=== PATIENT | female | born 1945 | race African-American/Black ===

== ENCOUNTER 2018-10-24 12:06 | Inpatient (IN) | payer MEDICARE, OTHER ==
[2018-10-24 14:16] LABS: ADD MAN DIFF? NO
[2018-10-24 14:20] LABS: BASOPHILS % 0.2 % (0.0-2.0); EOSINOPHILS # 0.1 10^3/ul (0.0-0.5); EOSINOPHILS % 1.1 % (0.0-7.0); HEMATOCRIT 32.5 % (37.0-47.0); LYMPHOCYTES # 2.1 10^3/ul (0.8-2.9); LYMPHOCYTES % 25.6 % (15.0-51.0); MEAN CORPUSCULAR HEMOGLOBIN 25.3 pg (29.0-33.0); MEAN CORPUSCULAR HGB CONC 33.8 g/dl (32.0-37.0); MEAN CORPUSCULAR VOLUME 74.9 fl (82.0-101.0); MEAN PLATELET VOLUME 10.8 fl (7.4-10.4); MONOCYTE # 0.7 10^3/ul (0.3-0.9); MONOCYTES % 8.5 % (0.0-11.0); NEUTROPHIL # 5.2 10^3/ul (1.6-7.5); NEUTROPHILS % 64.2 % (39.0-77.0); PLATELET COUNT 308 10^3/UL (140-415); RED BLOOD COUNT 4.34 10^6/ul (4.20-5.40); RED CELL DISTRIBUTION WIDTH 15.2 % (11.5-14.5)
[2018-10-24 14:20] LABS: WHITE BLOOD COUNT 8.2 10^3/ul (4.8-10.8)
[2018-10-24 14:39] LABS: ALANINE AMINOTRANSFERASE 23 IU/L (13-69); ALBUMIN 3.7 g/dl (3.3-4.9); ALBUMIN/GLOBULIN RATIO 1.23; ALKALINE PHOSPHATASE 99 IU/L (42-121); ANION GAP 12 (5-13); ASPARTATE AMINO TRANSFERASE 21 IU/L (15-46); BILIRUBIN,INDIRECT 0.3 mg/dl (0-1.1); BILIRUBIN,TOTAL 0.3 mg/dl (0.2-1.3); BLOOD UREA NITROGEN 18 mg/dl (7-20); CALCIUM 8.9 mg/dl (8.4-10.2); CARBON DIOXIDE 28 mmol/L (21-31); CHLORIDE 103 mmol/L (97-110); CREATININE 1.44 mg/dl (0.44-1.00); GLUCOSE 103 mg/dl (70-220); POTASSIUM 3.8 mmol/L (3.5-5.1); SODIUM 143 mmol/L (135-144); TOTAL PROTEIN 6.7 g/dl (6.1-8.1)
[2018-10-24 14:50] LABS: B-TYPE NATRIURETIC PEPTIDE 6000 PG/ML (0-125); TROPONIN-I 0.028 ng/ml (0.000-0.120)
[2018-10-24 14:52] LABS: INR 1.13; PROTIME 14.6 Sec (11.9-14.9); PT RATIO 1.1
[2018-10-24] MEDS: FUROSEMIDE 40 MG INJ IV (15:40)
[2018-10-24 17:34] LABS: TROPONIN-I 0.033 ng/ml (0.000-0.120)
[2018-10-24] MEDS: SPIRONOLACTONE 25 MG TAB PO (22:54)
[2018-10-24] MEDS: POTASSIUM CHLORIDE (SR) 20 MEQ TAB PO (22:54)
[2018-10-25] MEDS: FUROSEMIDE 40 MG INJ IV ×2 (05:54→17:29)
[2018-10-25 06:10] LABS: ADD MAN DIFF? NO
[2018-10-25 06:28] LABS: BASOPHILS % 0.3 % (0.0-2.0); EOSINOPHILS # 0.1 10^3/ul (0.0-0.5); EOSINOPHILS % 0.9 % (0.0-7.0); HEMATOCRIT 31.2 % (37.0-47.0); HEMOGLOBIN 10.3 g/dl (12.0-16.0); LYMPHOCYTES # 1.5 10^3/ul (0.8-2.9); LYMPHOCYTES % 22.7 % (15.0-51.0); MEAN CORPUSCULAR HEMOGLOBIN 25.1 pg (29.0-33.0); MEAN CORPUSCULAR VOLUME 75.9 fl (82.0-101.0); MEAN PLATELET VOLUME 11.2 fl (7.4-10.4); MONOCYTE # 0.5 10^3/ul (0.3-0.9); MONOCYTES % 8.5 % (0.0-11.0); NEUTROPHIL # 4.3 10^3/ul (1.6-7.5); NEUTROPHILS % 67.3 % (39.0-77.0); PLATELET COUNT 289 10^3/UL (140-415); RED BLOOD COUNT 4.11 10^6/ul (4.20-5.40)
[2018-10-25 06:28] LABS: WHITE BLOOD COUNT 6.4 10^3/ul (4.8-10.8)
[2018-10-25 06:39] LABS: DIGOXIN < 0.4 ng/ml (1.0-2.0)
[2018-10-25 06:49] LABS: TROPONIN-I 0.034 ng/ml (0.000-0.120)
[2018-10-25 06:53] LABS: FREE T4 (FREE THYROXINE) 1.39 ng/dl (0.78-2.44)
[2018-10-25 06:57] LABS: ALANINE AMINOTRANSFERASE 22 IU/L (13-69); ALBUMIN 3.5 g/dl (3.3-4.9); ALKALINE PHOSPHATASE 96 IU/L (42-121); ANION GAP 12 (5-13); ASPARTATE AMINO TRANSFERASE 23 IU/L (15-46); BILIRUBIN,INDIRECT 0.3 mg/dl (0-1.1); BILIRUBIN,TOTAL 0.3 mg/dl (0.2-1.3); BLOOD UREA NITROGEN 22 mg/dl (7-20); CALCIUM 8.9 mg/dl (8.4-10.2); CARBON DIOXIDE 25 mmol/L (21-31); CHLORIDE 105 mmol/L (97-110); CHOL/HDL RATIO 5.1 RATIO; CHOLESTEROL 113 mg/dl (100-200); CREATININE 1.47 mg/dl (0.44-1.00); GLUCOSE 116 mg/dl (70-220); HDL CHOLESTEROL 22 mg/dl (33-92); LDL CHOLESTEROL,CALCULATED 71 mg/dl; MAGNESIUM 1.8 mg/dl (1.7-2.5); POTASSIUM 3.9 mmol/L (3.5-5.1); SODIUM 142 mmol/L (135-144); TOTAL PROTEIN 6.4 g/dl (6.1-8.1); TRIGLYCERIDES 99 mg/dl (0-149)
[2018-10-25 07:45] LABS: B-TYPE NATRIURETIC PEPTIDE 7880 PG/ML (0-125)
[2018-10-25] MEDS: ISOSORBIDE MONONITRATE 20 MG TAB PO ×3 (08:53→20:33)
[2018-10-25] MEDS: ALLOPURINOL 100 MG TAB PO (08:54)
[2018-10-25] MEDS: POTASSIUM CHLORIDE (SR) 10 MEQ TAB PO (08:54)
[2018-10-25] MEDS: SPIRONOLACTONE 25 MG TAB PO (08:54)
[2018-10-25] MEDS ORDERED: FUROSEMIDE 40 MG INJ IV (09:00)
[2018-10-25] MEDS: ACETAMINOPHEN 325 MG TAB PO (18:15)
[2018-10-25] MEDS: GUAIFENESIN 20 MG/ML 5ML CUP PO ×2 (18:16→20:33)
[2018-10-25] MEDS: FERROUS SULFATE (EC) 325 MG TAB PO (23:11)
[2018-10-26] MEDS: GUAIFENESIN 20 MG/ML 5ML CUP PO ×2 (00:10→17:12)
[2018-10-26] MEDS: FUROSEMIDE 40 MG INJ IV (05:55)
[2018-10-26 06:08] LABS: B-TYPE NATRIURETIC PEPTIDE 8560 PG/ML (0-125)
[2018-10-26 06:19] LABS: ALANINE AMINOTRANSFERASE 24 IU/L (13-69); ALBUMIN 3.2 g/dl (3.3-4.9); ALBUMIN/GLOBULIN RATIO 1.14; ALKALINE PHOSPHATASE 97 IU/L (42-121); ANION GAP 10 (5-13); ASPARTATE AMINO TRANSFERASE 19 IU/L (15-46); BILIRUBIN,INDIRECT 0.3 mg/dl (0-1.1); BILIRUBIN,TOTAL 0.3 mg/dl (0.2-1.3); BLOOD UREA NITROGEN 23 mg/dl (7-20); CALCIUM 8.8 mg/dl (8.4-10.2); CARBON DIOXIDE 25 mmol/L (21-31); CHLORIDE 107 mmol/L (97-110); CREATININE 1.45 mg/dl (0.44-1.00); GLUCOSE 101 mg/dl (70-220); MAGNESIUM 1.8 mg/dl (1.7-2.5); POTASSIUM 3.4 mmol/L (3.5-5.1); SODIUM 142 mmol/L (135-144)
[2018-10-26] MEDS: ISOSORBIDE MONONITRATE 20 MG TAB PO ×3 (08:04→20:40)
[2018-10-26] MEDS: POTASSIUM CHLORIDE (SR) 10 MEQ TAB PO (08:05)
[2018-10-26] MEDS: ALLOPURINOL 100 MG TAB PO (08:05)
[2018-10-26] MEDS: SPIRONOLACTONE 25 MG TAB PO (08:05)
[2018-10-26] MEDS: FERROUS SULFATE (EC) 325 MG TAB PO ×3 (08:06→20:39)
[2018-10-27] MEDS: GUAIFENESIN 20 MG/ML 5ML CUP PO ×2 (00:32→20:30)
[2018-10-27 05:37] LABS: ADD MAN DIFF? NO
[2018-10-27 05:47] LABS: WHITE BLOOD COUNT 6.8 10^3/ul (4.8-10.8)
[2018-10-27 05:47] LABS: BASOPHILS % 0.4 % (0.0-2.0); EOSINOPHILS # 0.2 10^3/ul (0.0-0.5); EOSINOPHILS % 2.4 % (0.0-7.0); HEMATOCRIT 28.6 % (37.0-47.0); HEMOGLOBIN 9.7 g/dl (12.0-16.0); LYMPHOCYTES # 2.2 10^3/ul (0.8-2.9); MEAN CORPUSCULAR HEMOGLOBIN 24.9 pg (29.0-33.0); MEAN CORPUSCULAR HGB CONC 33.9 g/dl (32.0-37.0); MEAN CORPUSCULAR VOLUME 73.5 fl (82.0-101.0); MEAN PLATELET VOLUME 10.9 fl (7.4-10.4); MONOCYTE # 0.5 10^3/ul (0.3-0.9); MONOCYTES % 7.8 % (0.0-11.0); NEUTROPHIL # 3.8 10^3/ul (1.6-7.5); NEUTROPHILS % 56.1 % (39.0-77.0); PLATELET COUNT 260 10^3/UL (140-415); RED BLOOD COUNT 3.89 10^6/ul (4.20-5.40); RED CELL DISTRIBUTION WIDTH 14.9 % (11.5-14.5)
[2018-10-27 06:01] LABS: ALANINE AMINOTRANSFERASE 20 IU/L (13-69); ALKALINE PHOSPHATASE 91 IU/L (42-121); ANION GAP 9 (5-13); ASPARTATE AMINO TRANSFERASE 17 IU/L (15-46); BILIRUBIN,INDIRECT 0.1 mg/dl (0-1.1); BILIRUBIN,TOTAL 0.1 mg/dl (0.2-1.3); BLOOD UREA NITROGEN 26 mg/dl (7-20); CALCIUM 8.6 mg/dl (8.4-10.2); CARBON DIOXIDE 25 mmol/L (21-31); CHLORIDE 105 mmol/L (97-110); CREATININE 1.44 mg/dl (0.44-1.00); GLUCOSE 91 mg/dl (70-220); MAGNESIUM 1.8 mg/dl (1.7-2.5); POTASSIUM 3.4 mmol/L (3.5-5.1); SODIUM 139 mmol/L (135-144)
[2018-10-27 06:02] LABS: ALBUMIN 3.1 g/dl (3.3-4.9); TOTAL PROTEIN 5.9 g/dl (6.1-8.1)
[2018-10-27 06:06] LABS: B-TYPE NATRIURETIC PEPTIDE 5210 PG/ML (0-125)
[2018-10-27] MEDS: POTASSIUM CHLORIDE (SR) 10 MEQ TAB PO (08:19)
[2018-10-27] MEDS: FERROUS SULFATE (EC) 325 MG TAB PO ×3 (08:19→20:30)
[2018-10-27] MEDS: ALLOPURINOL 100 MG TAB PO (08:19)
[2018-10-27] MEDS: SPIRONOLACTONE 25 MG TAB PO (08:20)
[2018-10-27] MEDS: ISOSORBIDE MONONITRATE 20 MG TAB PO ×3 (08:20→20:30)
[2018-10-27] MEDS: FUROSEMIDE 40 MG INJ IV (08:21)
[2018-10-27] MEDS: POTASSIUM CHLORIDE (SR) 20 MEQ TAB PO (17:11)
[2018-10-27] MEDS: FUROSEMIDE 20 MG INJ IV (17:11)
[2018-10-27] MEDS: MAGNESIUM SULFATE 2 GM/50 ML 50 ML IVPB (17:11)
[2018-10-28 05:42] LABS: ADD MAN DIFF? NO
[2018-10-28 05:50] LABS: WHITE BLOOD COUNT 6.3 10^3/ul (4.8-10.8)
[2018-10-28 05:50] LABS: BASOPHILS % 0.3 % (0.0-2.0); EOSINOPHILS # 0.2 10^3/ul (0.0-0.5); EOSINOPHILS % 2.9 % (0.0-7.0); HEMATOCRIT 30.6 % (37.0-47.0); HEMOGLOBIN 10.2 g/dl (12.0-16.0); LYMPHOCYTES # 1.8 10^3/ul (0.8-2.9); LYMPHOCYTES % 28.9 % (15.0-51.0); MEAN CORPUSCULAR HEMOGLOBIN 25.1 pg (29.0-33.0); MEAN CORPUSCULAR HGB CONC 33.3 g/dl (32.0-37.0); MEAN CORPUSCULAR VOLUME 75.4 fl (82.0-101.0); MEAN PLATELET VOLUME 10.8 fl (7.4-10.4); MONOCYTE # 0.6 10^3/ul (0.3-0.9); MONOCYTES % 9.3 % (0.0-11.0); NEUTROPHIL # 3.7 10^3/ul (1.6-7.5); NEUTROPHILS % 58.1 % (39.0-77.0); PLATELET COUNT 281 10^3/UL (140-415); RED BLOOD COUNT 4.06 10^6/ul (4.20-5.40); RED CELL DISTRIBUTION WIDTH 15.1 % (11.5-14.5)
[2018-10-28] MEDS: GUAIFENESIN 20 MG/ML 5ML CUP PO (05:59)
[2018-10-28 06:10] LABS: MAGNESIUM 2.3 mg/dl (1.7-2.5)
[2018-10-28 06:10] LABS: ALANINE AMINOTRANSFERASE 23 IU/L (13-69); ALBUMIN 3.4 g/dl (3.3-4.9); ALKALINE PHOSPHATASE 96 IU/L (42-121); ANION GAP 8 (5-13); ASPARTATE AMINO TRANSFERASE 16 IU/L (15-46); BILIRUBIN,INDIRECT 0.2 mg/dl (0-1.1); BILIRUBIN,TOTAL 0.2 mg/dl (0.2-1.3); BLOOD UREA NITROGEN 23 mg/dl (7-20); CALCIUM 9.1 mg/dl (8.4-10.2); CARBON DIOXIDE 28 mmol/L (21-31); CHLORIDE 107 mmol/L (97-110); CREATININE 1.45 mg/dl (0.44-1.00); GLUCOSE 102 mg/dl (70-220); POTASSIUM 4.2 mmol/L (3.5-5.1); SODIUM 143 mmol/L (135-144)
[2018-10-28 06:14] LABS: B-TYPE NATRIURETIC PEPTIDE 4720 PG/ML (0-125)
[2018-10-28] MEDS: FERROUS SULFATE (EC) 325 MG TAB PO ×2 (08:32→12:52)
[2018-10-28] MEDS: POTASSIUM CHLORIDE (SR) 10 MEQ TAB PO (08:32)
[2018-10-28] MEDS: ALLOPURINOL 100 MG TAB PO (08:32)
[2018-10-28] MEDS: SPIRONOLACTONE 25 MG TAB PO (08:32)
[2018-10-28] MEDS: ISOSORBIDE MONONITRATE 20 MG TAB PO ×2 (08:33→12:53)
[2018-10-28] MEDS: FUROSEMIDE 40 MG INJ IV (09:00)
[2018-10-28] MEDS: FUROSEMIDE 40 MG TAB PO (11:16)
== END 2018-10-28 17:00 | disposition home or self-care (01) | DRG 291 ==
LOC: E/R 12:06 → 6WM 18:56
DX: I13.0 Hypertensive heart and chronic kidney disease with heart failure and stage 1 through stage 4 chronic kidney disease, or unspecified chronic kidney disease (principal); I50.23 Acute on chronic systolic (congestive) heart failure; N18.1 Chronic kidney disease, stage 1; Z95.810 Presence of automatic (implantable) cardiac defibrillator; I25.10 Atherosclerotic heart disease of native coronary artery without angina pectoris; J44.9 Chronic obstructive pulmonary disease, unspecified; I42.9 Cardiomyopathy, unspecified; D64.9 Anemia, unspecified
CPT/HCPCS: 36415; 71045; 80053; 80061; 80162; 83735; 83880; 84439; 84443; 84484; 85025; 85610; 93005; 93306; 93308; 96374; 99285-25

== ENCOUNTER 2019-06-08 19:36 | Inpatient (IN) | payer MEDICARE, OTHER ==
[2019-06-08 20:43] LABS: ADD MAN DIFF? NO
[2019-06-08 20:47] LABS: WHITE BLOOD COUNT 7.3 10^3/ul (4.8-10.8)
[2019-06-08 20:47] LABS: BASOPHILS % 0.5 % (0.0-2.0); EOSINOPHILS # 0.2 10^3/ul (0.0-0.5); EOSINOPHILS % 2.1 % (0.0-7.0); HEMATOCRIT 38.2 % (37.0-47.0); HEMOGLOBIN 12.9 g/dl (12.0-16.0); LYMPHOCYTES # 2.9 10^3/ul (0.8-2.9); LYMPHOCYTES % 39.1 % (15.0-51.0); MEAN CORPUSCULAR HGB CONC 33.8 g/dl (32.0-37.0); MEAN CORPUSCULAR VOLUME 80.1 fl (82.0-101.0); MEAN PLATELET VOLUME 11.4 fl (7.4-10.4); MONOCYTE # 0.5 10^3/ul (0.3-0.9); MONOCYTES % 7.3 % (0.0-11.0); NEUTROPHIL # 3.7 10^3/ul (1.6-7.5); NEUTROPHILS % 50.3 % (39.0-77.0); PLATELET COUNT 272 10^3/UL (140-415); RED BLOOD COUNT 4.77 10^6/ul (4.20-5.40); RED CELL DISTRIBUTION WIDTH 16.3 % (11.5-14.5)
[2019-06-08] MEDS: NITROGLYCERIN 2% 1 GM OINT PKT TD (20:54)
[2019-06-08] MEDS: ASPIRIN 81 MG TAB PO (20:54)
[2019-06-08] MEDS: FUROSEMIDE 40 MG INJ IV (20:54)
[2019-06-08 21:05] LABS: ALANINE AMINOTRANSFERASE 30 IU/L (13-69); ALBUMIN 4.4 g/dl (3.3-4.9); ALBUMIN/GLOBULIN RATIO 1.41; ALKALINE PHOSPHATASE 108 IU/L (42-121); ANION GAP 14 (5-13); ASPARTATE AMINO TRANSFERASE 31 IU/L (15-46); BLOOD UREA NITROGEN 27 mg/dl (7-20); CALCIUM 9.8 mg/dl (8.4-10.2); CARBON DIOXIDE 23 mmol/L (21-31); CHLORIDE 104 mmol/L (97-110); CREATININE 1.79 mg/dl (0.44-1.00); GLUCOSE 109 mg/dl (70-220); POTASSIUM 3.3 mmol/L (3.5-5.1); SODIUM 141 mmol/L (135-144); TOTAL PROTEIN 7.5 g/dl (6.1-8.1)
[2019-06-08 21:17] LABS: B-TYPE NATRIURETIC PEPTIDE 11700 PG/ML (0-125); TROPONIN-I 0.023 ng/ml (0.000-0.120)
[2019-06-08] MEDS ORDERED: ONDANSETRON 4 MG INJ IV (22:00)
[2019-06-08] MEDS ORDERED: ACETAMINOPHEN 325 MG TAB PO (22:00)
[2019-06-08 22:01] LABS: INR 1.21; PROTIME 15.4 Sec (11.9-14.9); PT RATIO 1.2
[2019-06-09 03:30] LABS: ADD MAN DIFF? NO
[2019-06-09 03:48] LABS: ALANINE AMINOTRANSFERASE 32 IU/L (13-69); ALBUMIN 3.9 g/dl (3.3-4.9); ALBUMIN/GLOBULIN RATIO 1.39; ALKALINE PHOSPHATASE 97 IU/L (42-121); ANION GAP 12 (5-13); ASPARTATE AMINO TRANSFERASE 27 IU/L (15-46); BILIRUBIN,INDIRECT 0.9 mg/dl (0-1.1); BILIRUBIN,TOTAL 0.9 mg/dl (0.2-1.3); BLOOD UREA NITROGEN 28 mg/dl (7-20); CALCIUM 9.5 mg/dl (8.4-10.2); CARBON DIOXIDE 22 mmol/L (21-31); CHLORIDE 107 mmol/L (97-110); CREATINE KINASE 96 IU/L (23-200); GLUCOSE 110 mg/dl (70-220); POTASSIUM 3.3 mmol/L (3.5-5.1); SODIUM 141 mmol/L (135-144); TOTAL PROTEIN 6.7 g/dl (6.1-8.1)
[2019-06-09 03:52] LABS: CK INDEX 1.1; CK-MB 1.07 ng/ml (0.0-2.4); TROPONIN-I 0.032 ng/ml (0.000-0.120)
[2019-06-09 03:57] LABS: WHITE BLOOD COUNT 6.8 10^3/ul (4.8-10.8)
[2019-06-09 03:57] LABS: BASOPHILS % 0.4 % (0.0-2.0); EOSINOPHILS # 0.1 10^3/ul (0.0-0.5); EOSINOPHILS % 1.3 % (0.0-7.0); HEMATOCRIT 34.2 % (37.0-47.0); HEMOGLOBIN 11.7 g/dl (12.0-16.0); LYMPHOCYTES # 2.6 10^3/ul (0.8-2.9); MEAN CORPUSCULAR HEMOGLOBIN 27.1 pg (29.0-33.0); MEAN CORPUSCULAR HGB CONC 34.2 g/dl (32.0-37.0); MEAN CORPUSCULAR VOLUME 79.4 fl (82.0-101.0); MEAN PLATELET VOLUME 11.1 fl (7.4-10.4); MONOCYTE # 0.5 10^3/ul (0.3-0.9); MONOCYTES % 7.8 % (0.0-11.0); NEUTROPHIL # 3.5 10^3/ul (1.6-7.5); NEUTROPHILS % 51.1 % (39.0-77.0); PLATELET COUNT 237 10^3/UL (140-415); RED BLOOD COUNT 4.31 10^6/ul (4.20-5.40); RED CELL DISTRIBUTION WIDTH 15.9 % (11.5-14.5)
[2019-06-09] MEDS: ALLOPURINOL 100 MG TAB PO (08:15)
[2019-06-09] MEDS: ISOSORBIDE DINITRATE 10 MG TAB PO ×2 (08:16→20:04)
[2019-06-09] MEDS: POTASSIUM CHLORIDE (SR) 20 MEQ TAB PO (08:16)
[2019-06-09] MEDS: CALCIUM CARBONATE 500 MG CHEW TAB PO ×2 (08:16→20:04)
[2019-06-09] MEDS: FAMOTIDINE 20 MG TAB PO (08:16)
[2019-06-09] MEDS: ASPIRIN 81 MG TAB PO (08:16)
[2019-06-09] MEDS: MULTIVITAMINS/MINERALS TAB PO (08:17)
[2019-06-09] MEDS: FUROSEMIDE 40 MG INJ IV ×2 (08:17→17:41)
[2019-06-09] MEDS ORDERED: NON-FORMULARY/PATIENT OWN MED (Calcium Carbonate* 600 MG) PO (09:00)
[2019-06-09 09:05] LABS: CREATINE KINASE 95 IU/L (23-200)
[2019-06-09 09:17] LABS: CK INDEX 1.4; CK-MB 1.33 ng/ml (0.0-2.4); TROPONIN-I 0.037 ng/ml (0.000-0.120)
[2019-06-09] MEDS: COLCHICINE 0.6 MG CAP PO ×2 (13:06→20:04)
[2019-06-09] MEDS: ENOXAPARIN 30 MG/0.3 ML SYG SC (13:14)
[2019-06-09] MEDS: LEVALBUTEROL (NEB) 0.63 MG/3 ML AMP HHN ×3 (15:10→20:47)
[2019-06-10] MEDS: LEVALBUTEROL (NEB) 0.63 MG/3 ML AMP HHN ×6 (01:08→20:36)
[2019-06-10] MEDS: FUROSEMIDE 40 MG INJ IV ×2 (05:06→17:21)
[2019-06-10 07:10] LABS: ANION GAP 14 (5-13); BLOOD UREA NITROGEN 40 mg/dl (7-20); CALCIUM 9.2 mg/dl (8.4-10.2); CARBON DIOXIDE 20 mmol/L (21-31); CHLORIDE 105 mmol/L (97-110); CREATININE 1.96 mg/dl (0.44-1.00); GLUCOSE 127 mg/dl (70-220); POTASSIUM 3.6 mmol/L (3.5-5.1); SODIUM 139 mmol/L (135-144)
[2019-06-10 07:18] LABS: B-TYPE NATRIURETIC PEPTIDE 16100 PG/ML (0-125)
[2019-06-10 07:24] LABS: MAGNESIUM 1.8 mg/dl (1.7-2.5)
[2019-06-10] MEDS: COLCHICINE 0.6 MG CAP PO ×2 (08:13→21:37)
[2019-06-10] MEDS: MULTIVITAMINS/MINERALS TAB PO (08:13)
[2019-06-10] MEDS: ISOSORBIDE DINITRATE 10 MG TAB PO ×2 (08:14→21:37)
[2019-06-10] MEDS: ASPIRIN 81 MG TAB PO (08:14)
[2019-06-10] MEDS: CALCIUM CARBONATE 500 MG CHEW TAB PO ×2 (08:14→21:37)
[2019-06-10] MEDS: POTASSIUM CHLORIDE (SR) 20 MEQ TAB PO (08:14)
[2019-06-10] MEDS: FAMOTIDINE 20 MG TAB PO (08:14)
[2019-06-10] MEDS: ENOXAPARIN 30 MG/0.3 ML SYG SC (09:05)
[2019-06-10] MEDS: MAGNESIUM SULFATE 2 GM/50 ML 50 ML IVPB (18:16)
[2019-06-11] MEDS: LEVALBUTEROL (NEB) 0.63 MG/3 ML AMP HHN ×12 (01:30→20:20)
[2019-06-11 07:11] LABS: ANION GAP 11 (5-13); BLOOD UREA NITROGEN 45 mg/dl (7-20); CALCIUM 8.9 mg/dl (8.4-10.2); CARBON DIOXIDE 23 mmol/L (21-31); CHLORIDE 105 mmol/L (97-110); CREATININE 2.21 mg/dl (0.44-1.00); GLUCOSE 91 mg/dl (70-220); POTASSIUM 3.5 mmol/L (3.5-5.1); SODIUM 139 mmol/L (135-144)
[2019-06-11 07:12] LABS: B-TYPE NATRIURETIC PEPTIDE 14200 PG/ML (0-125)
[2019-06-11] MEDS: CALCIUM CARBONATE 500 MG CHEW TAB PO ×2 (08:36→20:31)
[2019-06-11] MEDS: COLCHICINE 0.6 MG CAP PO ×2 (08:37→20:30)
[2019-06-11] MEDS: FAMOTIDINE 20 MG TAB PO (08:37)
[2019-06-11] MEDS: MULTIVITAMINS/MINERALS TAB PO (08:37)
[2019-06-11] MEDS: SPIRONOLACTONE 25 MG TAB PO (08:37)
[2019-06-11] MEDS: ASPIRIN 81 MG TAB PO (08:37)
[2019-06-11] MEDS: FUROSEMIDE 40 MG TAB PO (08:38)
[2019-06-11] MEDS: POTASSIUM CHLORIDE (SR) 20 MEQ TAB PO (08:39)
[2019-06-11] MEDS: ISOSORBIDE DINITRATE 10 MG TAB PO ×2 (08:39→20:31)
[2019-06-11] MEDS: ENOXAPARIN 30 MG/0.3 ML SYG SC (08:43)
[2019-06-11] MEDS: GUAIFENESIN/DM 5ML CUP PO (19:50)
[2019-06-12] MEDS: LOPERAMIDE 2 MG CAP PO ×2 (00:57→14:53)
[2019-06-12] MEDS: LEVALBUTEROL (NEB) 0.63 MG/3 ML AMP HHN ×5 (01:00→17:20)
[2019-06-12 06:53] LABS: ADD MAN DIFF? NO
[2019-06-12 06:57] LABS: BASOPHIL # 0.1 10^3/ul (0.0-0.1); BASOPHILS % 0.7 % (0.0-2.0); EOSINOPHILS # 0.2 10^3/ul (0.0-0.5); EOSINOPHILS % 2.1 % (0.0-7.0); HEMATOCRIT 34.8 % (37.0-47.0); HEMOGLOBIN 11.8 g/dl (12.0-16.0); LYMPHOCYTES # 2.6 10^3/ul (0.8-2.9); LYMPHOCYTES % 35.5 % (15.0-51.0); MEAN CORPUSCULAR HEMOGLOBIN 27.2 pg (29.0-33.0); MEAN CORPUSCULAR HGB CONC 33.9 g/dl (32.0-37.0); MEAN CORPUSCULAR VOLUME 80.2 fl (82.0-101.0); MEAN PLATELET VOLUME 11.9 fl (7.4-10.4); MONOCYTE # 0.6 10^3/ul (0.3-0.9); MONOCYTES % 8.7 % (0.0-11.0); NEUTROPHIL # 3.8 10^3/ul (1.6-7.5); NEUTROPHILS % 52.6 % (39.0-77.0); PLATELET COUNT 225 10^3/UL (140-415); RED BLOOD COUNT 4.34 10^6/ul (4.20-5.40); RED CELL DISTRIBUTION WIDTH 16.6 % (11.5-14.5)
[2019-06-12 06:57] LABS: WHITE BLOOD COUNT 7.2 10^3/ul (4.8-10.8)
[2019-06-12 07:26] LABS: ANION GAP 11 (5-13); BLOOD UREA NITROGEN 52 mg/dl (7-20); CALCIUM 9.5 mg/dl (8.4-10.2); CARBON DIOXIDE 22 mmol/L (21-31); CHLORIDE 106 mmol/L (97-110); CREATININE 2.22 mg/dl (0.44-1.00); GLUCOSE 93 mg/dl (70-220); POTASSIUM 4.2 mmol/L (3.5-5.1); SODIUM 139 mmol/L (135-144)
[2019-06-12 07:28] LABS: MAGNESIUM 2.3 mg/dl (1.7-2.5)
[2019-06-12] MEDS: CALCIUM CARBONATE 500 MG CHEW TAB PO ×2 (08:07→21:28)
[2019-06-12] MEDS: COLCHICINE 0.6 MG CAP PO ×2 (08:07→21:28)
[2019-06-12] MEDS: POTASSIUM CHLORIDE (SR) 20 MEQ TAB PO (08:07)
[2019-06-12] MEDS: ASPIRIN 81 MG TAB PO (08:07)
[2019-06-12] MEDS: MULTIVITAMINS/MINERALS TAB PO (08:08)
[2019-06-12] MEDS: SPIRONOLACTONE 25 MG TAB PO (08:08)
[2019-06-12] MEDS: FAMOTIDINE 20 MG TAB PO (08:08)
[2019-06-12] MEDS: FUROSEMIDE 40 MG TAB PO (08:10)
[2019-06-12] MEDS: ISOSORBIDE DINITRATE 10 MG TAB PO ×2 (08:11→21:28)
[2019-06-12] MEDS: ENOXAPARIN 30 MG/0.3 ML SYG SC (08:16)
[2019-06-12] MEDS ORDERED: VANCOMYCIN HCL 250 MG/5ML POSYG PO (14:30)
[2019-06-12] MEDS: metroNIDAZOLE 500 MG TAB PO ×2 (14:53→21:28)
[2019-06-13] MEDS: LEVALBUTEROL (NEB) 0.63 MG/3 ML AMP HHN ×6 (01:44→21:12)
[2019-06-13] MEDS: metroNIDAZOLE 500 MG TAB PO ×3 (06:19→22:48)
[2019-06-13 06:40] LABS: ANION GAP 12 (5-13); BLOOD UREA NITROGEN 55 mg/dl (7-20); CALCIUM 9.4 mg/dl (8.4-10.2); CARBON DIOXIDE 22 mmol/L (21-31); CHLORIDE 106 mmol/L (97-110); CREATININE 2.26 mg/dl (0.44-1.00); GLUCOSE 108 mg/dl (70-220); SODIUM 140 mmol/L (135-144)
[2019-06-13] MEDS: POTASSIUM CHLORIDE (SR) 20 MEQ TAB PO (08:36)
[2019-06-13] MEDS: CALCIUM CARBONATE 500 MG CHEW TAB PO ×2 (08:36→22:48)
[2019-06-13] MEDS: FAMOTIDINE 20 MG TAB PO (08:36)
[2019-06-13] MEDS: ASPIRIN 81 MG TAB PO (08:36)
[2019-06-13] MEDS: FUROSEMIDE 40 MG TAB PO (08:38)
[2019-06-13] MEDS: SPIRONOLACTONE 25 MG TAB PO (08:38)
[2019-06-13] MEDS: ISOSORBIDE DINITRATE 10 MG TAB PO ×2 (08:38→22:48)
[2019-06-13] MEDS: MULTIVITAMINS/MINERALS TAB PO (08:38)
[2019-06-13] MEDS: ENOXAPARIN 30 MG/0.3 ML SYG SC (08:53)
[2019-06-13] MEDS: COLCHICINE 0.6 MG CAP PO ×2 (10:24→22:48)
[2019-06-13] MEDS: LOPERAMIDE 2 MG CAP PO (11:58)
[2019-06-13] MEDS: GUAIFENESIN/DM 5ML CUP PO (16:04)
[2019-06-13] MEDS: DICYCLOMINE 10 MG CAP PO (22:48)
[2019-06-14] MEDS: LEVALBUTEROL (NEB) 0.63 MG/3 ML AMP HHN ×6 (01:13→20:08)
[2019-06-14] MEDS: metroNIDAZOLE 500 MG TAB PO ×3 (06:02→22:52)
[2019-06-14] MEDS: COLCHICINE 0.6 MG CAP PO ×2 (08:06→20:29)
[2019-06-14] MEDS: CALCIUM CARBONATE 500 MG CHEW TAB PO ×2 (08:06→20:27)
[2019-06-14] MEDS: MULTIVITAMINS/MINERALS TAB PO (08:06)
[2019-06-14] MEDS: FUROSEMIDE 40 MG TAB PO (08:06)
[2019-06-14] MEDS: SPIRONOLACTONE 25 MG TAB PO (08:07)
[2019-06-14] MEDS: POTASSIUM CHLORIDE (SR) 20 MEQ TAB PO (08:07)
[2019-06-14] MEDS: ISOSORBIDE DINITRATE 10 MG TAB PO ×2 (08:07→20:27)
[2019-06-14] MEDS: FAMOTIDINE 20 MG TAB PO (08:07)
[2019-06-14] MEDS: ASPIRIN 81 MG TAB PO (08:08)
[2019-06-14] MEDS: ENOXAPARIN 30 MG/0.3 ML SYG SC (08:11)
[2019-06-14 08:21] LABS: ADD MAN DIFF? NO
[2019-06-14 08:31] LABS: WHITE BLOOD COUNT 6.2 10^3/ul (4.8-10.8)
[2019-06-14 08:31] LABS: BASOPHILS % 0.5 % (0.0-2.0); EOSINOPHILS # 0.1 10^3/ul (0.0-0.5); HEMATOCRIT 34.9 % (37.0-47.0); HEMOGLOBIN 11.7 g/dl (12.0-16.0); LYMPHOCYTES # 1.9 10^3/ul (0.8-2.9); LYMPHOCYTES % 30.6 % (15.0-51.0); MEAN CORPUSCULAR HGB CONC 33.5 g/dl (32.0-37.0); MEAN CORPUSCULAR VOLUME 80.6 fl (82.0-101.0); MEAN PLATELET VOLUME 12.2 fl (7.4-10.4); MONOCYTE # 0.6 10^3/ul (0.3-0.9); NEUTROPHIL # 3.6 10^3/ul (1.6-7.5); NEUTROPHILS % 57.4 % (39.0-77.0); PLATELET COUNT 234 10^3/UL (140-415); RED BLOOD COUNT 4.33 10^6/ul (4.20-5.40)
[2019-06-14 08:47] LABS: ANION GAP 12 (5-13); BLOOD UREA NITROGEN 54 mg/dl (7-20); CALCIUM 9.4 mg/dl (8.4-10.2); CARBON DIOXIDE 19 mmol/L (21-31); CHLORIDE 108 mmol/L (97-110); GLUCOSE 109 mg/dl (70-220); MAGNESIUM 2.2 mg/dl (1.7-2.5); SODIUM 139 mmol/L (135-144)
[2019-06-14] MEDS: DICYCLOMINE 10 MG CAP PO ×2 (15:27→20:27)
[2019-06-15] MEDS: LEVALBUTEROL (NEB) 0.63 MG/3 ML AMP HHN ×5 (01:11→17:00)
[2019-06-15] MEDS: metroNIDAZOLE 500 MG TAB PO ×2 (05:43→13:56)
[2019-06-15 06:51] LABS: ANION GAP 14 (5-13); BLOOD UREA NITROGEN 52 mg/dl (7-20); CALCIUM 9.4 mg/dl (8.4-10.2); CARBON DIOXIDE 18 mmol/L (21-31); CHLORIDE 108 mmol/L (97-110); CREATININE 2.58 mg/dl (0.44-1.00); GLUCOSE 82 mg/dl (70-220); POTASSIUM 4.3 mmol/L (3.5-5.1); SODIUM 140 mmol/L (135-144)
[2019-06-15] MEDS: COLCHICINE 0.6 MG CAP PO (08:49)
[2019-06-15] MEDS: MULTIVITAMINS/MINERALS TAB PO (08:49)
[2019-06-15] MEDS: CALCIUM CARBONATE 500 MG CHEW TAB PO (08:50)
[2019-06-15] MEDS: ASPIRIN 81 MG TAB PO (08:50)
[2019-06-15] MEDS: POTASSIUM CHLORIDE (SR) 20 MEQ TAB PO (08:51)
[2019-06-15] MEDS: ISOSORBIDE DINITRATE 10 MG TAB PO (08:51)
[2019-06-15] MEDS: SPIRONOLACTONE 25 MG TAB PO (08:52)
[2019-06-15] MEDS: FAMOTIDINE 20 MG TAB PO (08:53)
[2019-06-15] MEDS: FUROSEMIDE 40 MG TAB PO (08:53)
[2019-06-15] MEDS: ENOXAPARIN 30 MG/0.3 ML SYG SC (09:01)
[2019-06-15] MEDS: GUAIFENESIN/DM 5ML CUP PO (11:30)
== END 2019-06-15 16:48 | disposition home or self-care (01) | DRG 291 ==
LOC: TEL 21:39 → E/R 19:36
DX: I13.0 Hypertensive heart and chronic kidney disease with heart failure and stage 1 through stage 4 chronic kidney disease, or unspecified chronic kidney disease (principal); I50.23 Acute on chronic systolic (congestive) heart failure; I31.3 Pericardial effusion (noninflammatory); N17.9 Acute kidney failure, unspecified; A04.72 Enterocolitis due to Clostridium difficile, not specified as recurrent; N18.9 Chronic kidney disease, unspecified; R10.32 Left lower quadrant pain
CPT/HCPCS: 36415; 71045; 80048; 80053; 82550; 82553; 83735; 83880; 84484; 85025; 85610; 85730; 87075; 87081; 93005; 93306; 94640; 94664; 96374; 99285-25